=== PATIENT | female | born 1965 | race Hispanic/Latino ===

== ENCOUNTER 2017-02-17 15:38 | Emergency (ER) | payer OTHER ==
[2017-02-17 16:03] VITALS: RESP 18; O2SAT 99
--- NOTE | 2017-02-17 16:38 | C.PDOC ---
History Of Present Illness A 52 y/o F c/o redness and pain to the medial aspect of the right ankle for a couple of days after wearing an anklet prior to onset. Denies fever, chills, nausea, vomiting, trauma to the area, itchiness, purulent discharge. Pt reports after taking off the anklet the pain and redness improved. Of note, pt's BP elevated in the ER at 166/110. Pt states she had a Hx of HTN and takes Clonadine 3x daily. She took a dose today and is due for another at 17:00. Denies headache, dizziness, chest pain, or any other complaints. Time Seen by Provider: 02/17/17 16:09 Chief Complaint (Nursing): Lower Extremity Problem/Injury History Per: Patient History/Exam Limitations: no limitations Onset/Duration Of Symptoms: Days Current Symptoms Are (Timing): Still Present Severity: Mild Recent travel outside of the [place]: No Additional History Per: Patient Past Medical History Reviewed: Historical Data, Nursing Documentation, Vital Signs Vital Signs: Last Vital Signs Temp 98 F 02/17/17 16:35 Pulse 86 02/17/17 16:35 Resp 18 02/17/17 16:37 BP 166/100 H 02/17/17 16:35 Pulse Ox 99 02/17/17 18:09 - Medical History PMH: Asthma, HTN Family History: States: Unknown Family Hx - Social History Hx Tobacco Use: No Hx Alcohol Use: No Hx Substance Use: No - Immunization History Hx Tetanus Toxoid Vaccination: No Hx Influenza Vaccination: No Hx Pneumococcal Vaccination: No Review Of Systems Except As Marked, All Systems Reviewed And Found Negative. Constitutional: Negative for: Fever, Chills, Other (Trauma to the area) Gastrointestinal: Negative for: Nausea, Vomiting Musculoskeletal: Positive for: Foot Pain (Pain and redness to the medial aspect of the right ankle ) Skin: Negative for: Other (Itchiness or purulent discharge) Neurological: Negative for: Headache, Dizziness Physical Exam - Physical Exam Appears: Non-toxic, No Acute Distress Skin: Warm, Dry Head: Atraumatic, Normacephalic Oral Mucosa: Moist Neck: Normal, Normal ROM, Trachea Midline Cardiovascular: Rhythm Regular, No Murmur Respiratory: Normal Breath Sounds, No Rales, No Rhonchi, No Wheezing Back: Normal Inspection, No CVA Tenderness, No Vertebral Tenderness Extremity: Normal ROM, Tenderness, Capillary Refill (<2secs), No Deformity, Other (5x5 cm circular area of erythema with mild tenderness to the medial right ankle. Warm to touch, not hot. No discharge) Pulses: Left Dorsalis Pedis: Normal, Right Dorsalis Pedis: Normal Neurological/Psych: Oriented x3, Normal Speech, Normal Cognition, Normal Motor, Normal Sensation ED Course And Treatment O2 Sat by Pulse Oximetry: 99 (RA) Pulse Ox Interpretation: Normal Medical Decision Making Medical Decision Makin yo F presents with pain and redness to the medial R ankle, consider contact dermatitis vs cellulitis. Repeat BP 166/100. Plans: Pt advised that she can take OTC benadryl to see if area of redness improved. Otherwise to continue taking antibiotics as instructed. Pt is in no acute distress at this time and instructed to follow up with PMD for re-evaluation. Disposition Counseled Patient/Family Regarding: Diagnosis, Need For Followup, Rx Given - Disposition Disposition: HOME/ ROUTINE Disposition Time: 16:36 Condition: STABLE Prescriptions: Cephalexin [Keflex] 500 mg PO Q6 #28 capsule Naproxen 500 mg PO BID #30 tab Sulfamethoxazole/Trimethoprim [Bactrim DS 800 mg-160 mg] 2 tab PO BID #28 tab Instructions: Cellulitis (ED) Forms: Work Excuse Print Language: MAORI - Clinical Impression Clinical Impression: Cellulitis - PA / [employer] EXTING[employer]ST[employer]ER / Resident Statement MD/DO has reviewed & agrees with the documentation as recorded. - Scribe Statement The provider has reviewed the documentation as recorded by the Scribe Ivan rollins All medical record entries made by the José Miguelibcurtis were at my direction and personally dictated by me. I have reviewed the chart and agree that the record accurately reflects my personal performance of the history, physical exam, medical decision making, and the department course for this patient. I have also personally directed, reviewed, and agree with the discharge instructions and disposition.
[2017-02-17 16:46] VITALS: BP 166/100; PULSE 86; TEMP 98
== END 2017-02-17 16:47 | disposition home or self-care (01) ==
LOC: C.ER 15:38
DX: L03.115 Cellulitis of right lower limb (principal)